=== PATIENT | male | born 1980 | race Caucasian/White ===

== ENCOUNTER 2023-07-25 13:43 | Emergency (ER) | payer MEDICAID ==
[~2023-07-25] VITALS: Ht 175.3 cm; Wt 81.6 kg
[2023-07-25 13:48] VITALS: BP 148/107; PULSE 86; RESP 16; TEMP 98.6; O2SAT 96
[2023-07-25] MEDS ORDERED: BO1 TP (16:02)
[2023-07-25] MEDS ORDERED: BACITRACIN ZINC OINT UDPKT TOP ONE (16:15)
[2023-07-25] MEDS ORDERED: TETANUS, DIPHTHERIA, PERTUSSIS VAC/PF 0.5ML (>10YR OLD) IM ONE (16:15)
[2023-07-25] MEDS ORDERED: LIDOCAINE HCL/PF 1% 10 MG/ML 5ML VIAL INFIL ONE (16:15)
[2023-07-25] MEDS ORDERED: AMOX1TAB16 MT (16:54)
== END 2023-07-25 17:07 | disposition home or self-care (01) ==
LOC: ER 13:43
DX: S61.012A Laceration without foreign body of left thumb without damage to nail, initial encounter (principal); E11.9 Type 2 diabetes mellitus without complications; Z98.890 Other specified postprocedural states; X58.XXXA Exposure to other specified factors, initial encounter; Y93.89 Activity, other specified; Y92.89 Other specified places as the place of occurrence of the external cause; Y99.8 Other external cause status
CPT/HCPCS: 73140; 12002; 99283; Z7610

== ENCOUNTER 2023-07-27 19:26 | Emergency (ER) | payer MEDICAID ==
[~2023-07-27 19:26] MED LIST: AMOX1TAB16 MT; BO1 TP
[2023-07-27 19:34] VITALS: PULSE 91
== END 2023-07-27 21:48 | disposition left against medical advice (07) ==
LOC: ER 19:56
DX: Z53.21 Procedure and treatment not carried out due to patient leaving prior to being seen by health care provider (principal)
CPT/HCPCS: 99281